=== PATIENT | female | born 1970 | race Caucasian/White ===

== ENCOUNTER 2022-12-23 23:47 | Emergency (ER) | payer SELFPAY ==
[~2022-12-23] VITALS: Ht 162.6 cm; Wt 87.0 kg
[2022-12-23 23:56] VITALS: BP 130/67; PULSE 75; RESP 18; TEMP 98.2; O2SAT 97
[2022-12-24] MEDS ORDERED: IBUP-2028 MT (00:15)
[2022-12-24] MEDS ORDERED: AMOX-494 MT (00:15)
== END 2022-12-24 00:20 | disposition home or self-care (01) ==
LOC: ER 23:47
DX: H91.92 Unspecified hearing loss, left ear (principal); E11.9 Type 2 diabetes mellitus without complications; Z90.710 Acquired absence of both cervix and uterus
CPT/HCPCS: 99281; 99283